=== PATIENT | female | born 2000 | race Caucasian/White ===

== ENCOUNTER 2018-08-12 10:00 | Outpatient (CLI) | payer OTHER ==
--- NOTE | 2018-08-12 20:35 | EKG ---
Test Reason : Blood Pressure : / mmHG Vent. Rate : 067 BPM Atrial Rate : 067 BPM P-R Int : 164 ms QRS Dur : 086 ms QT Int : 382 ms P-R-T Axes : 068 082 061 degrees QTc Int : 403 ms Normal sinus rhythm with sinus arrhythmia Normal ECG No previous ECGs available Confirmed by DR. Indra DAS ([id number]) on 08/12/2018 8:35:48 PM Referred By: [email or web address] Confirmed By:DR. Indra DAS
== END 2018-08-12 10:01 | disposition home or self-care (01) ==
LOC: EKG 10:00
PROVIDERS: ATTEND Obstetrics & Gynecology
DX: R01.1 Cardiac murmur, unspecified (principal); I49.9 Cardiac arrhythmia, unspecified
CPT/HCPCS: 93005; 93010